=== PATIENT | female | born 1935 | race African-American/Black ===

== ENCOUNTER 2016-06-23 22:31 | Emergency (ER) | payer OTHER ==
[~2016-06-23] VITALS: Ht 175.3 cm; Wt 68.0 kg
--- NOTE | 2016-06-23 23:00 | NUR ---
XRAY IN PROGRESS AT THE BEDSIDE.
[2016-06-23] MEDS ORDERED: HYDROCODONE/APAP 5/325MG 1 EACH TABLET ONE (23:01)
--- NOTE | 2016-06-23 23:03 | NUR ---
PT REC'D MEDICATION ORDERED.
[2016-06-23] MEDS ORDERED: HYDROCODONE/APAP 5/325MG 1 EACH TABLET PO ONE (23:30)
[2016-06-24] MEDS ORDERED: HYDROCODONE/APAP 5/325MG 1 EACH TABLET ONE (00:48)
[2016-06-24] MEDS ORDERED: HYDROCODONE/APAP 5/325MG 1 EACH TABLET PO ONE (01:00)
[2016-06-24 01:08] VITALS: BP 130/98
== END 2016-06-24 01:00 | disposition home or self-care (01) ==
LOC: ER 22:35
DX: S42.002A Fracture of unspecified part of left clavicle, initial encounter for closed fracture (principal); I10 Essential (primary) hypertension; W01.0XXA Fall on same level from slipping, tripping and stumbling without subsequent striking against object, initial encounter; Y93.9 Activity, unspecified; Y92.9 Unspecified place or not applicable; Y99.9 Unspecified external cause status
CPT/HCPCS: 29125; 73030; 99284; A4606; Z7610